=== PATIENT | male | born 2000 | race Caucasian/White ===

== ENCOUNTER 2023-06-07 13:30 | Emergency (ER) | payer OTHER, BC ==
[2023-06-07] MEDS: Diphtheria,Pertussis(Acell),Tetanus Vaccine 0.5 ML Syringe IM ONE (13:53)
[2023-06-07] MEDS: Ondansetron 4 MG Tab.DIS PO ONE (13:53)
[2023-06-07] MEDS: Acetaminophen/HYDROcodone 325-5 MG Tab PO ONE (13:53)
[2023-06-07] MEDS: ceFAZolin 1 GM Vial IM ONE (13:54)
[2023-06-07] MEDS: Lidocaine 1% 10 ML MDV INJECT ONE (14:47)
== END 2023-06-07 15:43 | disposition home or self-care (01) ==
LOC: VM.ED 13:30
DX: S68.627A Partial traumatic transphalangeal amputation of left little finger, initial encounter (principal); Z23 Encounter for immunization; W23.0XXA Caught, crushed, jammed, or pinched between moving objects, initial encounter
CPT/HCPCS: 12001; 73140-F4; 90471; 90715; 96372; 99283-25; A9270-GY; J0690; J3490